=== PATIENT | male | born 1985 | race African-American/Black ===

== ENCOUNTER 2016-08-17 01:39 | Emergency (ER) | payer OTHER ==
[~2016-08-17] VITALS: Ht 172.7 cm; Wt 97.1 kg
[2016-08-17 01:54] VITALS: BP 135/72
[2016-08-17 02:23] LABS: OBC FLU VALID
[2016-08-17] MEDS ORDERED: BENZ100C PO (02:54)
[2016-08-17] MEDS ORDERED: BENZONATATE 100 MG CAPSULE. PO ONE (03:00)
[2016-08-17] MEDS ORDERED: IBUPROFEN 600 MG TABLET. PO ONE (03:00)
[2016-08-17] MEDS ORDERED: DEXAMETHASONE SOD PHOS 4 MG/ML VIAL PO ONE (03:00)
--- NOTE | 2016-08-17 05:05 | ED.ADGEN ---
Past Medical History Past Medical History: Diabetes-Type II Past Surgical History: No Surgical History Additional Information: CIGARS Alcohol Use: Occasionally Adult General Chief Complaint Chief Complaint: SORE THROAT HPI HPI Patient is a 31 year old [man, history of type 2 diabetes mellitus which is controlled with oral euglycemics, hearing loss, for which he has bilateral hearing aids, who presents to the emergency department with complaint of nasal congestion, postnasal drip, cough and sore throat for the past 4 days. Patient states that he has positive sick contacts among family members, denies any fevers or chills, nausea or vomiting, any difficulty swallowing or breathing, any dental pain, any facial swelling. Patient states that he took Tylenol earlier this evening, and was previously seen in an urgent care yesterday, and received both influenza and a strep swab that were negative. No swelling in extremities, no other complaints. Review of Systems Review of Systems Constitutional: Denies fever or chills. [] Eyes: Denies change in visual acuity. [] HENT: Nasal congestion and sore throat Respiratory: Denies cough or shortness of breath. [] Cardiovascular: Denies chest pain or edema. [] GI: Denies abdominal pain, nausea, vomiting, bloody stools or diarrhea. [] : Denies dysuria. [] Musculoskeletal: Denies back pain or joint pain. [] Integument: Denies rash. [] Neurologic: Denies headache, focal weakness or sensory changes. [] Endocrine: Denies polyuria or polydipsia. [] Lymphatic: Denies swollen glands. [] Psychiatric: Denies depression or anxiety. [] Current Medications Current Medications Current Medications Medications (Trade) Dose Ordered Sig/Woo Start Time Stop Time Status Last Admin Dose Admin Benzonatate (Tessalon Perle) 100 mg 1X ONCE 08/17/16 03:00 08/17/16 03:01 DC 08/17/16 03:06 100 MG Dexamethasone Sodium Phosphate (Decadron) 6 mg 1X ONCE 08/17/16 03:00 08/17/16 03:01 DC 08/17/16 03:06 6 MG Ibuprofen (Motrin) 600 mg 1X ONCE 08/17/16 03:00 08/17/16 03:01 DC 08/17/16 03:06 600 MG Allergies Allergies Allergies Coded Allergies Type Severity Reaction Last Updated Verified No Known Drug Allergies 08/17/16 No Physical Exam Physical Exam Constitutional: Well developed, well nourished, no acute distress, non-toxic appearance. [] HENT: Normocephalic, atraumatic, bilateral external ears normal, oropharynx is moist, mildly injected, with post nasal drip noted, no oral exudates, patient with significant bilateral term and swelling with clear rhinorrhea. TMs are clear bilaterally. No sinus tenderness. Eyes: PERRLA, EOMI, conjunctiva normal, no discharge. [] Neck: Normal range of motion, no tenderness, supple, no stridor. [] Cardiovascular:Heart rate regular rhythm, no murmur , S1, S2, no rubs or gallops. [] Lungs & Thorax: Bilateral breath sounds clear to auscultation, no wheezing, rhonchi, rales. No chest wall crepitus. No tenderness. Abdomen: Bowel sounds normal, soft, no tenderness, no masses, no pulsatile masses. [] Skin: Warm, dry, no erythema, no rash. [] Back: No tenderness, no CVA tenderness. [] Extremities: No tenderness, no cyanosis, no clubbing, ROM intact, no edema. [] Neurologic: Alert and oriented X 3, normal motor function, normal sensory function, no focal deficits noted. [] Psychologic: Affect normal, judgement normal, mood normal. [] Current Patient Data Vital Signs Vital Signs Date Time Temp Pulse Resp B/P Pulse Ox O2 Delivery O2 Flow Rate FiO2 08/17/16 01:54 98.1 95 18 98 Room Air 98.1 Lab Values Laboratory Tests Test 08/17/16 02:01 Influenza Type A Antigen Negative (NEGATIVE) Influenza Type B Antigen Negative (NEGATIVE) EKG EKG Not indicated. [] Radiology/Procedures Radiology/Procedures Not indicated. [] Course & Med Decision Making Course & Med Decision Making Pertinent Labs and Imaging studies reviewed. (See chart for details) Patient well-appearing, no evidence of tonsillar swelling or evidence of infection, no exudate as stated, strep and flu swabs are negative in the ED. Evidence of viral upper respiratory infection with potential contribution of seasonal allergies. No sinus tenderness, Patient's primary issue appears to be cough that is worse when he lies down at night. He is using Flonase at home, has begun Claritin again but only took 1 dose earlier today. He was given a single dose of Decadron in the ED to help with inflammation and irritation of the throat, written a prescription for Tessalon Perle, also given a Tessalon Perle in the ED, and ibuprofen. Additionally patient was instructed to stay well -hydrated, given clear and detailed return instructions with which she voiced understanding and agreement. Patient tolerated medications without issue, was discharged home in stable condition with plan as above. Dragon Disclaimer Dragon Disclaimer This electronic medical record was generated, in whole or in part, using a voice recognition dictation system. Departure Impression: Primary Impression: Congestion of nasal sinus Disposition: HOME, SELF-CARE Condition: IMPROVED Scripts Benzonatate (Tessalon Perle)100 Mg [id number] Mg PO TID PRN COUGH #12 CAP Prov:ROLF REDDY DO 08/17/16 ROLF REDDY DO Aug 17, 2016 05:05
[2016-08-17 06:45] LABS: NEGATIVE OBC STREP NEG; POSITIVE OBC STREP POS
== END 2016-08-17 03:11 | disposition home or self-care (01) ==
LOC: ER 01:39
DX: R09.81 Nasal congestion (principal); R09.82 Postnasal drip; J02.9 Acute pharyngitis, unspecified; E11.9 Type 2 diabetes mellitus without complications; F17.210 Nicotine dependence, cigarettes, uncomplicated
CPT/HCPCS: 87070; 87804; 87880; 99284; J1100

== ENCOUNTER 2016-10-05 23:01 | Emergency (ER) | payer OTHER ==
[~2016-10-05 23:01] MED LIST: BENZ100C PO
[2016-10-05 23:12] VITALS: BP 136/84
[2016-10-05] MEDS ORDERED: AMOX1TAB61 PO (23:38)
[2016-10-05] MEDS ORDERED: PRED20TA PO (23:38)
--- NOTE | 2016-10-05 23:39 | PHYS DOC ---
Past Medical History Past Medical History: Diabetes-Type II Past Surgical History: No Surgical History Alcohol Use: Occasionally Drug Use: None Adult General Chief Complaint Chief Complaint: SKIN RASH/ABSCESS [facility] HPI Patient is a 31 year old male presents emergency department stating that he has a rash on his forehead. He states that started today when he was working underneath some heat clamps. He states that this has happened last year when he was out in the sun. He states that he had seen a rn clinical appeals for this in the past in which she was placed on steroids and Benadryl. Patient also states that he has had some sinus pressure on and off for the last month. He states that he has had pressure on the right maxillary area. Patient states he's been taken Benadryl at home as well as Sudafed and Claritin with no relief. Patient denies fever, chills or any nausea vomiting. Review of Systems Review of Systems Constitutional: Denies fever or chills [] Eyes: Denies change in visual acuity, redness, or eye pain [] HENT: nasal congestion denies sore throat [] Respiratory: Denies cough or shortness of breath [] Cardiovascular: No additional information not addressed in HPI [] GI: Denies abdominal pain, nausea, vomiting, bloody stools or diarrhea [] : Denies dysuria or hematuria [] Musculoskeletal: Denies back pain or joint pain [] Integument: rash on his forehead or skin lesions [] Neurologic: Denies headache, focal weakness or sensory changes [] Endocrine: Denies polyuria or polydipsia [] Allergies Allergies Allergies Coded Allergies Type Severity Reaction Last Updated Verified No Known Drug Allergies 08/17/16 No Physical Exam Physical Exam Constitutional: Well developed, well nourished, no acute distress, non-toxic appearance. [] HENT: Normocephalic, atraumatic, bilateral external ears normal, oropharynx moist, no oral exudates, nose normal. Bilateral tympanic membranes appear to be normal. Patient does wear bilateral hearing aids. Patient with right maxillary and frontal sinus tenderness. No anterior cervical adenopathy noted. Eyes: PERRLA, EOMI, conjunctiva normal, no discharge. [] Neck: Normal range of motion, no tenderness, supple, no stridor. [] Cardiovascular:Heart rate regular rhythm, no murmur [] Lungs & Thorax: Bilateral breath sounds clear to auscultation [] Skin: Warm, dry, no erythema, patient with a red papular type rash noted on his forehead. No drainage or discharge noted. Back: No tenderness Extremities: No tenderness, no cyanosis, no clubbing, ROM intact, no edema. [] Neurologic: Alert and oriented X 3, normal motor function, normal sensory function, no focal deficits noted. [] Psychologic: Affect normal, judgement normal, mood normal. [] Current Patient Data Vital Signs Vital Signs Date Time Temp Pulse Resp B/P Pulse Ox O2 Delivery O2 Flow Rate FiO2 10/05/16 23:12 97.9 70 16 97 Room Air 97.9 EKG EKG [] Radiology/Procedures Radiology/Procedures [] Course & Med Decision Making Course & Med Decision Making Pertinent Labs and Imaging studies reviewed. (See chart for details) Patient will be placed on prednisone to help with the rash. He'll also be placed on Augmentin for sinusitis infection. Recommended Sudafed to help with the sinus pressure and Mucinex DM. These medications may be taken as prescribed [id number]. Encourage plenty of fluids such as water Gatorade or propel. Also recommended Benadryl to help with the rash. Patient agrees with discharge instructions treatment regimens and follow-up recommendations. Patient was also instructed that prednisone will also increase his blood sugars. Signs and symptoms to return back to emergency department been provided. [] Dragon Disclaimer Dragon Disclaimer This electronic medical record was generated, in whole or in part, using a voice recognition dictation system. Departure Departure Impression: Primary Impression: Rash Additional Impression: Sinusitis Disposition: 01 HOME, SELF-CARE Condition: STABLE Referrals: LUIS HENDERSON MD (PCP) Patient Instructions: Rash, [id number], Sinusitis, [id number] Additional Instructions: Your being treated for a rash as well as a sinusitis infection. Medication as prescribed. Sudafed instructed by stem frazer [id number]. Mucinex DM instructed by stem frazer [id number]. Benadryl 25 mg every 4-6 hours for irritation to the forehead. This medication will cause drowsiness do not take any be alert and oriented. Keep the area of the rash clean dry and cool. Follow-up to primary care physician in the next week. Return back to emergency prior signs symptoms of become worse. Scripts Prednisone 20 Mg [id number] Mg PO DAILY #14 TAB Prov:JAMAR MASSEY APRN 10/05/16 Amoxicillin/Potassium Clav (Augmentin 875-125 Tablet)1 Each Tablet1 Tab PO BID # 20 TAB Prov:JAMAR MASSEY APRN 10/05/16 Problem Qualifiers JAMAR MASSEY APRN Oct 05, 2016 23:39
== END 2016-10-05 23:46 | disposition home or self-care (01) ==
LOC: ER 23:01
DX: R21 Rash and other nonspecific skin eruption (principal); J32.9 Chronic sinusitis, unspecified; E11.9 Type 2 diabetes mellitus without complications
CPT/HCPCS: 99283

== ENCOUNTER 2017-05-11 14:28 | Emergency (ER) | payer OTHER ==
[~2017-05-11] VITALS: Ht 172.7 cm; Wt 96.6 kg
[~2017-05-11 14:28] MED LIST changes: +AMOX1TAB61 PO; +PRED20TA PO
[2017-05-11 15:00] LABS: BILIRUBIN,URINE NEGATIVE (NEG); GLUCOSE,URINE >=1000 mg/dL (NEG); NITRITE,URINE NEGATIVE (NEG); PH,URINE 7.5; PROTEIN,URINE NEGATIVE (NEG-TRACE); UROBILINOGEN,URINE 0.2 mg/dL (0.2 mg/dL)
[2017-05-11 15:11] LABS: BACTERIA,URINE 0 /HPF (0-FEW); RBC,URINE 0 /HPF (0-2); WBC,URINE 0 /HPF (0-4)
[2017-05-11] MEDS ORDERED: IV NORMAL SALINE 1000ML BAG 1,000 ML IV ONE (15:15)
[2017-05-11 15:45] LABS: BASO # 0.1 x10^3/uL (0.0-0.2); BASO % 1 % (0-3); EOS % 4 % (0-3); HEMATOCRIT 45.6 % (39.0-53.0); HEMOGLOBIN 15.4 g/dL (13.0-17.5); LYMPH # 3.1 x10^3/uL (1.0-4.8); LYMPH % 25 % (24-48); MEAN CORPUSCULAR HEMOGLOBIN 29 pg (25-35); MEAN CORPUSCULAR HGB CONC 34 g/dL (31-37); MEAN CORPUSCULAR VOLUME 85 fL (79-100); MONO % 6 % (0-9); NEUT % 65 % (31-73); PLATELET COUNT 199 x10^3/uL (140-400); RED BLOOD COUNT 5.36 x10^6/uL (4.30-5.70); RED CELL DISTRIBUTION WIDTH 13.5 % (11.5-14.5); WHITE BLOOD COUNT 12.6 x10^3/uL (4.0-11.0)
[2017-05-11 15:56] LABS: ANION GAP 6 (6-14); BLOOD UREA NITROGEN 14 mg/dL (8-26); CALCIUM 9.5 mg/dL (8.5-10.1); CARBON DIOXIDE 31 mmol/L (21-32); CHLORIDE 99 mmol/L (98-107); CREATININE 1.1 mg/dL (0.7-1.3); GFR 92.7; GLUCOSE 407 mg/dL (70-99); POTASSIUM 4.4 mmol/L (3.5-5.1); SODIUM 136 mmol/L (136-145)
[2017-05-11 16:03] LABS: ALBUMIN 3.4 g/dL (3.4-5.0); ALK PHOS 122 U/L (46-116); ALT (SGPT) 29 U/L (16-63); AST (SGOT) 15 U/L (15-37); DIRECT BILIRUBIN < 0.1 mg/dL (0.0-0.2); TOTAL BILIRUBIN 0.2 mg/dL (0.2-1.0); TOTAL PROTEIN 7.4 g/dL (6.4-8.2)
--- NOTE | 2017-05-11 16:21 | PHYS DOC ---
Past Medical History Past Medical History: Diabetes-Type II Past Surgical History: No Surgical History Alcohol Use: Occasionally Drug Use: None Adult General Chief Complaint Chief Complaint: HYPERGLYCEMIA HPI HPI 32-year-old male presenting the emergency department today with high blood sugars. He also complains of polyuria. He denies chest pain or shortness of breath. He is noted to have high blood sugars at home. He is type 2 diabetes currently on 1000 mg of metformin daily. He denies taking insulin. Otherwise he reports feeling "fine". He denies fevers or chills or cough. Onset today. Location generalized/blood. Duration intermittent. No alleviating or exacerbating factors. Review of systems is negative for fevers chills cough abdominal pain nausea vomiting diarrhea or dysuria. He denies chest pain or shortness of breath. All other review of systems is negative unless otherwise noted in history of present illness. ED course: 32-year-old male presenting the emergency department with high blood sugars. Vital signs unremarkable. Blood work obtained which showed no evidence of acidosis. I discussed the case with Dr. valdivia who is geothermal operations engineer for Dr. castro. Patient will likely need to be initiated on insulin which she'll have a primary care provider you. Dr. copeland states that they will be able to get the patient and clinic within the next day or 2. The patient was then discharged home in stable condition to follow up with their primary care physician over the next 2- 3 days. They were to return if their symptoms worsened or if they were concerned for any reason. [id number] discharge instructions and return precautions were given. Patient's questions were answered to their satisfaction. Patient is comfortable plan. Review of Systems Review of Systems SEE ABOVE. Current Medications Current Medications Current Medications Medications (Trade) Dose Ordered Sig/[facility] Start Time Stop Time Status Last Admin Dose Admin Sodium Chloride 1,000 ml @ 1,000 mls/hr 1X ONCE 05/11/17 15:15 05/11/17 16:14 DC 05/11/17 15:23 1,000 MLS/HR Allergies Allergies Allergies Coded Allergies Type Severity Reaction Last Updated Verified No Known Drug Allergies 08/17/16 No Physical Exam Physical Exam SEE ABOVE Constitutional: Well developed, well nourished, no acute distress, non-toxic appearance. HENT: Normocephalic, atraumatic, bilateral external ears normal, oropharynx moist, no oral exudates, nose normal. [] Eyes: PERRLA, EOMI, conjunctiva normal, no discharge. [] Neck: Normal range of motion, no tenderness, supple, no stridor. Cardiovascular:Heart rate regular rhythm, no murmur [] Lungs & Thorax: Bilateral breath sounds clear to auscultation [] Abdomen: Bowel sounds normal, soft, no tenderness, no masses, no pulsatile masses. Skin: Warm, dry, no erythema, no rash. [] Back: No tenderness, no CVA tenderness. Extremities: No tenderness, no cyanosis, no clubbing, ROM intact, no edema. [] Neurologic: Alert and oriented X 3, normal motor function, normal sensory function, no focal deficits noted. [] Psychologic: Affect normal, judgement normal, mood normal. [] Current Patient Data Vital Signs Vital Signs Date Time Temp Pulse Resp B/P (MAP) Pulse Ox O2 Delivery O2 Flow Rate FiO2 05/11/17 16:30 76 119/76 (90) 97 Room Air 05/11/17 15:53 17 05/11/17 14:40 98.3 98.3 Lab Values Laboratory Tests Test 05/11/17 14:40 05/11/17 14:52 05/11/17 15:20 Glucose (Fingerstick) 430 mg/dL (70-99) H Urine Collection Type Unknown Urine Color Yellow Urine Clarity Clear Urine pH 7.5 Urine Specific [place] >=1.030 Urine Protein Negative mg/dL (NEG-TRACE) Urine Glucose (UA) >=1000 mg/dL (NEG) Urine Ketones (Stick) Negative mg/dL (NEG) Urine Blood Negative (NEG) Urine Nitrite Negative (NEG) Urine Bilirubin Negative (NEG) Urine Urobilinogen Dipstick 0.2 mg/dL (0.2 mg/dL) Urine Leukocyte Esterase Negative (NEG) Urine RBC 0 /HPF (0-2) Urine WBC 0 /HPF (0-4) Urine Bacteria 0 /HPF (0-FEW) White Blood Count 12.6 x10^3/uL (4.0-11.0) H Red Blood Count 5.36 x10^6/uL (4.30-5.70) Hemoglobin 15.4 g/dL (13.0-17.5) Hematocrit 45.6 % (39.0-53.0) Mean Corpuscular Volume 85 fL (79-100) Mean Corpuscular Hemoglobin 29 pg (25-35) Mean Corpuscular Hemoglobin Concent 34 g/dL (31-37) Red Cell Distribution Width 13.5 % (11.5-14.5) Platelet Count 199 x10^3/uL (140-400) Neutrophils (%) (Auto) 65 % (31-73) Lymphocytes (%) (Auto) 25 % (24-48) Monocytes (%) (Auto) 6 % (0-9) Eosinophils (%) (Auto) 4 % (0-3) H Basophils (%) (Auto) 1 % (0-3) Neutrophils # (Auto) 8.1 x10^3uL (1.8-7.7) H Lymphocytes # (Auto) 3.1 x10^3/uL (1.0-4.8) Monocytes # (Auto) 0.7 x10^3/uL (0.0-1.1) Eosinophils # (Auto) 0.5 x10^3/uL (0.0-0.7) Basophils # (Auto) 0.1 x10^3/uL (0.0-0.2) Sodium Level 136 mmol/L (136-145) Potassium Level 4.4 mmol/L (3.5-5.1) Chloride Level 99 mmol/L (98-107) Carbon Dioxide Level 31 mmol/L (21-32) Anion Gap 6 (6-14) Blood Urea Nitrogen 14 mg/dL (8-26) Creatinine 1.1 mg/dL (0.7-1.3) Estimated GFR (Cockcroft-Gault) 92.7 Glucose Level 407 mg/dL (70-99) H Calcium Level 9.5 mg/dL (8.5-10.1) Total Bilirubin 0.2 mg/dL (0.2-1.0) Direct Bilirubin < 0.1 mg/dL (0.0-0.2) Aspartate Amino Transferase (AST) 15 U/L (15-37) Alanine Aminotransferase (ALT) 29 U/L (16-63) Alkaline Phosphatase 122 U/L (46-116) H Total Protein 7.4 g/dL (6.4-8.2) Albumin 3.4 g/dL (3.4-5.0) Lipase 374 U/L (73-393) Laboratory Tests 05/11/17 15:20 Laboratory Tests 05/11/17 15:20 EKG EKG [] Radiology/Procedures Radiology/Procedures [] Course & Med Decision Making Course & Med Decision Making Pertinent Labs and Imaging studies reviewed. (See chart for details) [] Dragon Disclaimer Dragon Disclaimer This electronic medical record was generated, in whole or in part, using a voice recognition dictation system. Departure Departure Impression: Primary Impression: Hyperglycemia Disposition: HOME, SELF-CARE Condition: STABLE Referrals: LUIS CASTRO MD (PCP) Patient Instructions: Hyperglycemia Additional Instructions: Thank you for allowing us to participate in your care today. Followup with your primary care physician in 3 days if your symptoms do not improve. Call your Primary Doctor tomorrow and inform them of your visit today. If you do not have a primary care provider you can ask for a list of our primary care providers. Return to the emergency department you have any new or concerning findings. This should be evaluated by the primary care physician and any necessary consulting services for continued management within a few days after discharge. Return to emergency room if you have any new or concerning symptoms including but not limited to fever, chills, nausea, vomiting, intractable pain, any new rashes, chest pain, shortness of air, uncontrolled bleeding, difficulty breathing, and/or vision loss. CAMILA LYN MD May 11, 2017 16:21
[2017-05-11 16:30] VITALS: BP 119/76
== END 2017-05-11 16:51 | disposition home or self-care (01) ==
LOC: ER 14:28
DX: E11.65 Type 2 diabetes mellitus with hyperglycemia (principal)
CPT/HCPCS: 36415; 80048; 80076; 81001; 82962; 83690; 85025; 96360; 99284; J7030

== ENCOUNTER 2018-04-03 21:57 | Emergency (ER) | payer OTHER ==
[~2018-04-03] VITALS: Ht 172.7 cm; Wt 96.6 kg
[2018-04-03 22:43] LABS: BILIRUBIN,URINE NEGATIVE (NEG); CLARITY,URINE CLEAR; NITRITE,URINE NEGATIVE (NEG); PROTEIN,URINE NEGATIVE (NEG-TRACE); UROBILINOGEN,URINE 0.2 mg/dL (0.2 mg/dL)
[2018-04-03 22:49] LABS: COLOR,URINE STRAW
[2018-04-03 22:50] LABS: BACTERIA,URINE 0 /HPF (0-FEW); RBC,URINE OCC /HPF (0-2); SQUAMOUS EPITHELIAL CELL,UR OCC /LPF; WBC,URINE 0 /HPF (0-4)
[2018-04-03 23:22] VITALS: BP 121/74
--- NOTE | 2018-04-03 23:22 | RAD ---
CT scan of the abdomen and pelvis without contrast 04/03/2018 CLINICAL HISTORY: Left lower quadrant abdominal pain. TECHNIQUE: Unenhanced, contiguous, 2 mm axial sections were obtained through the abdomen and pelvis. One or more of the following individualized dose reduction techniques were utilized for this study: 1. Automated exposure control. 2. Adjustment of the mA and/or kV according to patient size. 3. Use of iterative reconstruction technique. FINDINGS: No previous imaging studies are available for comparison. The absence of oral and intravenous contrast limits the study for the detection of solid organ and bowel pathology. Images through the lung bases are within normal limits. The liver, spleen, pancreas, and adrenal glands are within normal limits. No renal or ureteral calculus is seen. There is no evidence of obstruction of either collecting system. The abdominal aorta tapers normally. The gallbladder is contracted. No free fluid or free air is seen within the abdomen. There is no evidence of bowel obstruction. The appendix is well-visualized and is within normal limits. Images through the pelvis demonstrate the urinary bladder distended with urine. Oval-shaped masses are seen along the pelvic sidewalls, left greater than right suspicious for lymphadenopathy. The left pelvic mass measures 6.3 cm in greatest diameter. The right pelvic mass measures 3 cm in greatest diameter. No inguinal lymphadenopathy is seen. No retroperitoneal lymphadenopathy is noted. No free fluid is seen within the pelvis. Calcifications are seen within the pelvis consistent with phleboliths. Minimal S-shaped curvature of the thoracolumbar spine is seen. Degenerative changes are seen involving lower lumbar spine. IMPRESSION: 1. No renal or ureteral calculus is seen. There is no evidence of obstruction of either collecting system. 2. Masses are seen within the pelvis which most likely represent pelvic lymphadenopathy, left greater than right as outlined above. Electronically signed by: Colby Newell MD (04/03/2018 11:19 PM) [facility]
[2018-04-03 23:25] LABS: BASO # 0.1 x10^3/uL (0.0-0.2); BASO % 1 % (0-3); EOS # 0.5 x10^3/uL (0.0-0.7); EOS % 4 % (0-3); HEMATOCRIT 42.7 % (39.0-53.0); LYMPH # 3.5 x10^3/uL (1.0-4.8); LYMPH % 29 % (24-48); MEAN CORPUSCULAR HEMOGLOBIN 30 pg (25-35); MEAN CORPUSCULAR HGB CONC 35 g/dL (31-37); MEAN CORPUSCULAR VOLUME 86 fL (79-100); MONO # 0.8 x10^3/uL (0.0-1.1); MONO % 7 % (0-9); NEUT # 7.2 x10^3uL (1.8-7.7); NEUT % 59 % (31-73); PLATELET COUNT 221 x10^3/uL (140-400); RED BLOOD COUNT 4.98 x10^6/uL (4.30-5.70); RED CELL DISTRIBUTION WIDTH 13.3 % (11.5-14.5); WHITE BLOOD COUNT 12.1 x10^3/uL (4.0-11.0)
[2018-04-03 23:35] LABS: CALCIUM 9.3 mg/dL (8.5-10.1); CREATININE 0.8 mg/dL (0.7-1.3); GFR 133.1; POTASSIUM 3.9 mmol/L (3.5-5.1)
[2018-04-03 23:41] LABS: ALBUMIN 3.5 g/dL (3.4-5.0); ALBUMIN/GLOBULIN RATIO 0.9 (1.0-1.7); TOTAL BILIRUBIN 0.2 mg/dL (0.2-1.0); TOTAL PROTEIN 7.4 g/dL (6.4-8.2)
--- NOTE | 2018-04-04 04:46 | PHYS DOC ---
Past Medical History Past Medical History: Diabetes-Type II Past Surgical History: No Surgical History Alcohol Use: Occasionally Drug Use: None Adult General Chief Complaint Chief Complaint: FLANK PAIN HPI HPI Patient is a 33 year old -[place] male who presents with complaints of intermittent left flank pain rated as mild to moderate the past week. Patient also reports increased urinary frequency with pain over the left pelvic region. No nausea vomiting or sweats. No constipation or diarrhea. No prior abdominal surgeries. No history of kidney stones. No other acute symptoms or complaints[] Review of Systems Review of Systems ROS PER HPI All other systems were reviewed and found to be within normal limits, except as documented in this note. Allergies Allergies Allergies Coded Allergies Type Severity Reaction Last Updated Verified No Known Drug Allergies 08/17/16 No Physical Exam Physical Exam Constitutional: Well developed, well nourished, no acute distress, non-toxic appearance. [] HENT: Normocephalic, atraumatic, bilateral external ears normal, oropharynx moist, no oral exudates, nose normal. [] Eyes: PERRLA, EOMI, conjunctiva normal, no discharge. [] Neck: Normal range of motion, no tenderness, supple, no stridor. [] Cardiovascular:Heart rate regular rhythm, no murmur [] Lungs & Thorax: Bilateral breath sounds clear to auscultation [] Abdomen: Bowel sounds normal, soft, no tenderness,. [] Skin: Warm, dry, no erythema, no rash. [] Back: No tenderness, no CVA tenderness. [] Extremities: No tenderness, no cyanosis, no clubbing, ROM intact, no edema. [] Neurologic: Alert and oriented X 3, normal motor function, normal sensory function, no focal deficits noted. [] Psychologic: Affect normal, judgement normal, mood normal. [] Current Patient Data Vital Signs Vital Signs Date Time Temp Pulse Resp B/P (MAP) Pulse Ox O2 Delivery O2 Flow Rate FiO2 04/03/18 23:22 98.9 98 20 121/74 (90) 98 Room Air 98.9 Lab Values Laboratory Tests Test 04/03/18 22:02 04/03/18 23:15 Urine Collection Type Void Urine Color Straw Urine Clarity Clear Urine pH 6.0 Urine Specific [place] 1.010 Urine Protein Negative mg/dL (NEG-TRACE) Urine Glucose (UA) Negative mg/dL (NEG) Urine Ketones (Stick) Negative mg/dL (NEG) Urine Blood Negative (NEG) Urine Nitrite Negative (NEG) Urine Bilirubin Negative (NEG) Urine Urobilinogen Dipstick 0.2 mg/dL (0.2 mg/dL) Urine Leukocyte Esterase Negative (NEG) Urine RBC Occ /HPF (0-2) Urine WBC 0 /HPF (0-4) Urine Squamous Epithelial Cells Occ /LPF Urine Bacteria 0 /HPF (0-FEW) Urine Mucus Slight /LPF White Blood Count 12.1 x10^3/uL (4.0-11.0) H Red Blood Count 4.98 x10^6/uL (4.30-5.70) Hemoglobin 15.0 g/dL (13.0-17.5) Hematocrit 42.7 % (39.0-53.0) Mean Corpuscular Volume 86 fL (79-100) Mean Corpuscular Hemoglobin 30 pg (25-35) Mean Corpuscular Hemoglobin Concent 35 g/dL (31-37) Red Cell Distribution Width 13.3 % (11.5-14.5) Platelet Count 221 x10^3/uL (140-400) Neutrophils (%) (Auto) 59 % (31-73) Lymphocytes (%) (Auto) 29 % (24-48) Monocytes (%) (Auto) 7 % (0-9) Eosinophils (%) (Auto) 4 % (0-3) H Basophils (%) (Auto) 1 % (0-3) Neutrophils # (Auto) 7.2 x10^3uL (1.8-7.7) Lymphocytes # (Auto) 3.5 x10^3/uL (1.0-4.8) Monocytes # (Auto) 0.8 x10^3/uL (0.0-1.1) Eosinophils # (Auto) 0.5 x10^3/uL (0.0-0.7) Basophils # (Auto) 0.1 x10^3/uL (0.0-0.2) Sodium Level 137 mmol/L (136-145) Potassium Level 3.9 mmol/L (3.5-5.1) Chloride Level 103 mmol/L (98-107) Carbon Dioxide Level 27 mmol/L (21-32) Anion Gap 7 (6-14) Blood Urea Nitrogen 12 mg/dL (8-26) Creatinine 0.8 mg/dL (0.7-1.3) Estimated GFR (Cockcroft-Gault) 133.1 BUN/Creatinine Ratio 15 (6-20) Glucose Level 165 mg/dL (70-99) H Calcium Level 9.3 mg/dL (8.5-10.1) Total Bilirubin 0.2 mg/dL (0.2-1.0) Aspartate Amino Transferase (AST) 15 U/L (15-37) Alanine Aminotransferase (ALT) 25 U/L (16-63) Alkaline Phosphatase 93 U/L (46-116) Total Protein 7.4 g/dL (6.4-8.2) Albumin 3.5 g/dL (3.4-5.0) Albumin/Globulin Ratio 0.9 (1.0-1.7) L Laboratory Tests 04/03/18 23:15 Laboratory Tests 04/03/18 23:15 EKG EKG [] Radiology/Procedures Radiology/Procedures [CT abdomen pelvis: No evidence of kidney stones or ureteral obstruction. Nonspecifi, lymphadenopathy noted] Course & Med Decision Making Course & Med Decision Making Pertinent Labs and Imaging studies reviewed. (See chart for details) [Lab, and imaging studies reassuring. Recommend supportive care with PCP follow- up. Return precautions reviewed.] Dragon Disclaimer Dragon Disclaimer This electronic medical record was generated, in whole or in part, using a voice recognition dictation system. Departure Departure Impression: Primary Impression: Acute left flank pain Additional Impression: Urinary frequency Disposition: 01 HOME, SELF-CARE Condition: GOOD Patient Instructions: Flank Pain, [id number] Additional Instructions: You were evaluated in the emergency department for left flank pain, and increased urinary frequency. Lab and imaging were performed and are nondiagnostic. CT scan did show an inflamed pelvic lymph nodes. The significance of this finding is unknown. Please take ibuprofen or Tylenol for your back pain and follow-up with your local primary care physician for reevaluation and review CT results. In the meantime, if you develop new or worsening symptoms return to the ED.. Problem Qualifiers CHARLIE SINGER DO Apr 04, 2018 04:46
== END 2018-04-04 00:45 | disposition home or self-care (01) ==
LOC: ER 21:57
DX: R10.9 Unspecified abdominal pain (principal); R35.0 Frequency of micturition; R10.2 Pelvic and perineal pain; E11.9 Type 2 diabetes mellitus without complications
CPT/HCPCS: 36415; 74176; 80053; 81001; 85025; 99285-25

== ENCOUNTER 2019-04-19 00:16 | Emergency (ER) | payer OTHER ==
[~2019-04-19] VITALS: Ht 172.7 cm; Wt 96.6 kg
[2019-04-19] MEDS ORDERED: IV NORMAL SALINE 1000ML BAG 1,000 ML IV SCH (01:00)
[2019-04-19] MEDS ORDERED: ONDANSETRON PF 4 MG/2 ML VIAL. IV ONE (01:15)
[2019-04-19] MEDS ORDERED: LOPERAMIDE 2 MG CAPSULE PO ONE (01:15)
[2019-04-19 01:27] LABS: BASO % 0 % (0-3); EOS # 0.3 x10^3/uL (0.0-0.7); EOS % 5 % (0-3); HEMATOCRIT 37.9 % (39.0-53.0); HEMOGLOBIN 12.9 g/dL (13.0-17.5); LYMPH # 0.3 x10^3/uL (1.0-4.8); LYMPH % 6 % (24-48); MEAN CORPUSCULAR HEMOGLOBIN 28 pg (25-35); MEAN CORPUSCULAR HGB CONC 34 g/dL (31-37); MEAN CORPUSCULAR VOLUME 82 fL (79-100); MONO # 0.6 x10^3/uL (0.0-1.1); MONO % 11 % (0-9); NEUT # 4.3 x10^3/uL (1.8-7.7); NEUT % 78 % (31-73); PLATELET COUNT 207 x10^3/uL (140-400); RED BLOOD COUNT 4.62 x10^6/uL (4.30-5.70); RED CELL DISTRIBUTION WIDTH 14.4 % (11.5-14.5); WHITE BLOOD COUNT 5.5 x10^3/uL (4.0-11.0)
[2019-04-19 01:42] LABS: CALCIUM 9.1 mg/dL (8.5-10.1); CREATININE 0.8 mg/dL (0.7-1.3); GFR 132.4
[2019-04-19 01:47] LABS: ALBUMIN 3.4 g/dL (3.4-5.0); TOTAL BILIRUBIN 0.1 mg/dL (0.2-1.0); TOTAL PROTEIN 6.9 g/dL (6.4-8.2)
[2019-04-19 02:04] LABS: % BANDS 2 % (0-9); % EOS 6 % (0-5); % LYMPHS 7 % (24-48); % MONOS 14 % (0-10); % SEGS 71 % (35-66); PLT ESTIMATE ADEQUATE (ADEQUATE); TOXIC GRANULATION SLIGHT
[2019-04-19 02:15] VITALS: BP 123/83
[2019-04-19 02:16] LABS: BILIRUBIN,URINE NEGATIVE (NEG); CLARITY,URINE CLEAR; COLOR,URINE YELLOW; NITRITE,URINE NEGATIVE (NEG); PROTEIN,URINE NEGATIVE (NEG-TRACE); UROBILINOGEN,URINE 0.2 mg/dL (0.2 mg/dL)
[2019-04-19 02:25] LABS: BACTERIA,URINE 0 /HPF (0-FEW); RBC,URINE 0 /HPF (0-2); SQUAMOUS EPITHELIAL CELL,UR OCC /LPF; WBC,URINE OCC /HPF (0-4)
--- NOTE | 2019-04-19 02:35 | PHYS DOC ---
Past Medical History Past Medical History: Cancer, Diabetes-Type II Additional Past Medical Histor: PROSTATE CA Past Surgical History: No Surgical History Alcohol Use: Occasionally Drug Use: None Adult General Chief Complaint Chief Complaint: DIARRHEA HPI HPI Patient is a 34 year old male who presents with complaining of diarrhea. Patient states he has had history of prostate cancer and currently taking radiation therapy 5 times a week and his last therapy was 4 days ago and since then he has had episodes of diarrhea and thinks he is dehydrated. Patient states he had 5 or 6 episodes of nonbloody diarrhea today with generalized weakness and dizziness and nausea. Patient states he didn't check his blood sugar but thinks his blood sugar is high and thinks he needs IV fluid. Review of Systems Review of Systems Constitutional: Denies fever or chills [] Eyes: Denies change in visual acuity, redness, or eye pain [] HENT: Denies nasal congestion or sore throat [] Respiratory: Denies cough or shortness of breath [] Cardiovascular: No additional information not addressed in HPI [] GI: Denies abdominal pain, vomiting, reports nausea and diarrhea [] : Denies dysuria or hematuria [] Musculoskeletal: Denies back pain or joint pain [] Integument: Denies rash or skin lesions [] Neurologic: Denies headache, focal weakness or sensory changes [] Endocrine: Denies polyuria or polydipsia [] All other systems were reviewed and found to be within normal limits, except as documented in this note. Current Medications Current Medications Current Medications Medications (Trade) Dose Ordered Sig/Woo Start Time Stop Time Status Last Admin Dose Admin Loperamide HCl (Imodium) 4 mg 1X ONCE 04/19/19 01:15 04/19/19 01:16 DC 04/19/19 01:16 4 MG Ondansetron HCl (Zofran) 4 mg 1X ONCE 04/19/19 01:15 04/19/19 01:16 DC 04/19/19 01:16 4 MG Sodium Chloride 1,000 ml @ 1,000 mls/hr Q1H 04/19/19 01:00 04/19/19 01:59 DC 04/19/19 01:16 1,000 MLS/HR Allergies Allergies Allergies Coded Allergies Type Severity Reaction Last Updated Verified No Known Drug Allergies 08/17/16 No Physical Exam Physical Exam Constitutional: Well developed, well nourished, mild distress, non-toxic appearance. [] HENT: Normocephalic, atraumatic. Eyes: PERRLA, EOMI, conjunctiva normal, no discharge. [] Neck: Normal range of motion, no tenderness, supple, no stridor. [] Cardiovascular:Heart rate regular rhythm, no murmur [] Lungs & Thorax: Bilateral breath sounds clear to auscultation [] Abdomen: Bowel sounds normal, soft, no tenderness, no masses, no pulsatile masses. [] Skin: Warm, dry, no erythema, no rash. [] Back: No tenderness, no CVA tenderness. [] Extremities: No tenderness, no cyanosis, no clubbing, ROM intact, no edema. [] Neurologic: Alert and oriented X 3, no focal deficits noted. [] Psychologic: Affect normal, judgement normal, mood normal. [] Current Patient Data Vital Signs Vital Signs Date Time Temp Pulse Resp B/P (MAP) Pulse Ox O2 Delivery O2 Flow Rate FiO2 04/19/19 00:56 97.7 85 16 134/89 (104) 98 Room Air 97.7 Lab Values Laboratory Tests Test 04/19/19 01:10 04/19/19 02:10 White Blood Count 5.5 x10^3/uL (4.0-11.0) Red Blood Count 4.62 x10^6/uL (4.30-5.70) Hemoglobin 12.9 g/dL (13.0-17.5) L Hematocrit 37.9 % (39.0-53.0) L Mean Corpuscular Volume 82 fL (79-100) Mean Corpuscular Hemoglobin 28 pg (25-35) Mean Corpuscular Hemoglobin Concent 34 g/dL (31-37) Red Cell Distribution Width 14.4 % (11.5-14.5) Platelet Count 207 x10^3/uL (140-400) Neutrophils (%) (Auto) 78 % (31-73) H Lymphocytes (%) (Auto) 6 % (24-48) L Monocytes (%) (Auto) 11 % (0-9) H Eosinophils (%) (Auto) 5 % (0-3) H Basophils (%) (Auto) 0 % (0-3) Neutrophils # (Auto) 4.3 x10^3/uL (1.8-7.7) Lymphocytes # (Auto) 0.3 x10^3/uL (1.0-4.8) L Monocytes # (Auto) 0.6 x10^3/uL (0.0-1.1) Eosinophils # (Auto) 0.3 x10^3/uL (0.0-0.7) Basophils # (Auto) 0.0 x10^3/uL (0.0-0.2) Segmented Neutrophils % 71 % (35-66) H Band Neutrophils % 2 % (0-9) Lymphocytes % 7 % (24-48) L Monocytes % 14 % (0-10) H Eosinophils % 6 % (0-5) H Toxic Granulation Slight Platelet Estimate Adequate (ADEQUATE) Sodium Level 137 mmol/L (136-145) Potassium Level 4.0 mmol/L (3.5-5.1) Chloride Level 102 mmol/L (98-107) Carbon Dioxide Level 25 mmol/L (21-32) Anion Gap 10 (6-14) Blood Urea Nitrogen 8 mg/dL (8-26) Creatinine 0.8 mg/dL (0.7-1.3) Estimated GFR (Cockcroft-Gault) 132.4 BUN/Creatinine Ratio 10 (6-20) Glucose Level 237 mg/dL (70-99) H Calcium Level 9.1 mg/dL (8.5-10.1) Total Bilirubin 0.1 mg/dL (0.2-1.0) L Aspartate Amino Transferase (AST) 8 U/L (15-37) L Alanine Aminotransferase (ALT) 22 U/L (16-63) Alkaline Phosphatase 98 U/L (46-116) Total Protein 6.9 g/dL (6.4-8.2) Albumin 3.4 g/dL (3.4-5.0) Albumin/Globulin Ratio 1.0 (1.0-1.7) Lipase 223 U/L (73-393) Urine Collection Type Unknown Urine Color Yellow Urine Clarity Clear Urine pH 5.0 Urine Specific [place] 1.015 Urine Protein Negative mg/dL (NEG-TRACE) Urine Glucose (UA) 500 mg/dL (NEG) Urine Ketones (Stick) Negative mg/dL (NEG) Urine Blood Negative (NEG) Urine Nitrite Negative (NEG) Urine Bilirubin Negative (NEG) Urine Urobilinogen Dipstick 0.2 mg/dL (0.2 mg/dL) Urine Leukocyte Esterase Negative (NEG) Urine RBC 0 /HPF (0-2) Urine WBC Occ /HPF (0-4) Urine Squamous Epithelial Cells Occ /LPF Urine Bacteria 0 /HPF (0-FEW) Urine Mucus Slight /LPF Laboratory Tests 04/19/19 01:10 Laboratory Tests 04/19/19 01:10 EKG EKG [] Radiology/Procedures Radiology/Procedures [] Course & Med Decision Making Course & Med Decision Making Pertinent Labs reviewed. (See chart for details) Evaluation of patient in ER showed 34-year-old male patient under radiation therapy for prostate cancer complaining of diarrhea and elevation of blood sugar and dehydration. Patient had unremarkable labs except for blood sugar of 237 and treated with IV fluid, Zofran and Imodium with improvement of his condition. Patient was advised to follow-up with his oncologist. Dragon Disclaimer Dragon Disclaimer This electronic medical record was generated, in whole or in part, using a voice recognition dictation system. Departure Departure Impression: Primary Impression: Diarrhea Additional Impressions: History of prostate cancer Uncontrolled diabetes mellitus Disposition: HOME, SELF-CARE (at 0233) Condition: IMPROVED Referrals: PAUL BARRIOS (PCP) Patient Instructions: Diarrhea, Diet for Diarrhea, Adult, Hyperglycemia Additional Instructions: Drink plenty of liquids Follow-up with your primary care physician in 3-5 days Return to ER if not getting better Problem Qualifiers Primary Impression: Diarrhea Diarrhea type: unspecified type Qualified Codes: R19.7 - Diarrhea, unspecified Additional Impressions: Uncontrolled diabetes mellitus Diabetes mellitus type: other specified (including ALBERT) Glycemic state: with hyperglycemia Qualified Codes: E13.65 - Other specified diabetes mellitus with hyperglycemia SHANT PORTER MD Apr 19, 2019 02:35
== END 2019-04-19 02:45 | disposition home or self-care (01) ==
LOC: ER 00:16
DX: E11.65 Type 2 diabetes mellitus with hyperglycemia (principal); E86.0 Dehydration; R19.7 Diarrhea, unspecified; R53.1 Weakness; Z85.46 Personal history of malignant neoplasm of prostate
CPT/HCPCS: 36415; 80053; 81001; 83690; 85007; 85025; 96361; 96374; 99284; J2405; J7030; 99285

== ENCOUNTER 2019-06-27 18:33 | Emergency (ER) | payer OTHER ==
[~2019-06-27] VITALS: Ht 172.7 cm; Wt 104.3 kg
[2019-06-27] MEDS ORDERED: SULF1TAB24 PO (18:53)
--- NOTE | 2019-06-27 18:53 | PHYS DOC ---
Past Medical History Past Medical History: Cancer, Diabetes-Type II Additional Past Medical Histor: PROSTATE CA Past Surgical History: No Surgical History Alcohol Use: Occasionally Drug Use: None Adult General Chief Complaint Chief Complaint: SKIN RASH/ABSCESS HPI HPI 34 yo male presents to the emergency department with complaints of rash around port site. Patient has underlying history of prostate cancer, diabetes. He had his port removed on June 21. He noticed itching around the site, he also noticed bumps. He denies any drainage. Patient denies fever, nausea, vomiting, chest pain or SOB. All other ROS negative unless documented in HPI Review of Systems Review of Systems See Above Allergies Allergies Allergies Coded Allergies Type Severity Reaction Last Updated Verified No Known Drug Allergies 08/17/16 No Physical Exam Physical Exam See Above Constitutional: Well developed, well nourished, no acute distress, non-toxic appearance. [] Cardiovascular:Heart rate regular rhythm, no murmur [] Lungs & Thorax: Bilateral breath sounds clear to auscultation [] Abdomen: Bowel sounds normal, soft, no tenderness, no masses, no pulsatile masses. [] Skin: Warm, dry, no erythema, small raised rash - non vesicular appreciated around port site, no drainage appreciated Extremities: No tenderness, no edema. [] Neurologic: Alert and oriented X 3, no focal deficits noted. [] Psychologic: Affect normal, judgement normal, mood normal. [] Current Patient Data Vital Signs Vital Signs Date Time Temp Pulse Resp B/P (MAP) Pulse Ox O2 Delivery O2 Flow Rate FiO2 06/27/19 18:40 98.1 73 20 134/75 (94) 95 Room Air 98.1 Lab Values Laboratory Tests Test 06/27/19 18:50 White Blood Count 5.5 x10^3/uL (4.0-11.0) Red Blood Count 4.41 x10^6/uL (4.30-5.70) Hemoglobin 12.8 g/dL (13.0-17.5) L Hematocrit 36.9 % (39.0-53.0) L Mean Corpuscular Volume 84 fL (79-100) Mean Corpuscular Hemoglobin 29 pg (25-35) Mean Corpuscular Hemoglobin Concent 35 g/dL (31-37) Red Cell Distribution Width 13.9 % (11.5-14.5) Platelet Count 301 x10^3/uL (140-400) Neutrophils (%) (Auto) 75 % (31-73) H Lymphocytes (%) (Auto) 14 % (24-48) L Monocytes (%) (Auto) 8 % (0-9) Eosinophils (%) (Auto) 2 % (0-3) Basophils (%) (Auto) 1 % (0-3) Neutrophils # (Auto) 4.1 x10^3/uL (1.8-7.7) Lymphocytes # (Auto) 0.8 x10^3/uL (1.0-4.8) L Monocytes # (Auto) 0.4 x10^3/uL (0.0-1.1) Eosinophils # (Auto) 0.1 x10^3/uL (0.0-0.7) Basophils # (Auto) 0.0 x10^3/uL (0.0-0.2) Laboratory Tests 06/27/19 18:50 EKG EKG [] Radiology/Procedures Radiology/Procedures [] Course & Med Decision Making Course & Med Decision Making Pertinent Labs and Imaging studies reviewed. (See chart for details) [] 34 yo male presents to the emergency department with complaints of rash around port site. Patient has underlying history of prostate cancer, diabetes. He had his port removed on June 21. He noticed itching around the site, he also noticed bumps. He denies any drainage. Patient denies fever, nausea, vomiting, chest pain or SOB. Labs reviewed Bactrim DS provided BID x 5 days Recommend following up with PCP as outpatient Return precautions provided Lolly Disclaimer Dragon Disclaimer This electronic medical record was generated, in whole or in part, using a voice recognition dictation system. Departure Departure Impression: Primary Impression: Rash Disposition: 01 HOME, SELF-CARE Condition: STABLE Referrals: PAUL BARRIOS (PCP) Patient Instructions: Rash Additional Instructions: Recommend follow up with PCP 3 - 5 days Return to the ER with worsening symptoms, intractable pain, fever, altered mental status Tylenol/Motrin as needed for pain Take antibiotics as directed Scripts Sulfamethoxazole/Trimethoprim (BACTRIM DS TABLET) 1 Each Tablet 1 TAB PO BID for infection for 5 Days, #10 TAB Prov: STEVE THORNE MD 06/27/19 STEVE THORNE MD Jun 27, 2019 18:53
[2019-06-27 18:59] LABS: BASO % 1 % (0-3); EOS # 0.1 x10^3/uL (0.0-0.7); EOS % 2 % (0-3); HEMATOCRIT 36.9 % (39.0-53.0); HEMOGLOBIN 12.8 g/dL (13.0-17.5); LYMPH # 0.8 x10^3/uL (1.0-4.8); LYMPH % 14 % (24-48); MEAN CORPUSCULAR HEMOGLOBIN 29 pg (25-35); MEAN CORPUSCULAR HGB CONC 35 g/dL (31-37); MEAN CORPUSCULAR VOLUME 84 fL (79-100); MONO # 0.4 x10^3/uL (0.0-1.1); MONO % 8 % (0-9); NEUT # 4.1 x10^3/uL (1.8-7.7); NEUT % 75 % (31-73); PLATELET COUNT 301 x10^3/uL (140-400); RED BLOOD COUNT 4.41 x10^6/uL (4.30-5.70); RED CELL DISTRIBUTION WIDTH 13.9 % (11.5-14.5); WHITE BLOOD COUNT 5.5 x10^3/uL (4.0-11.0)
[2019-06-27 19:00] VITALS: BP 128/68
== END 2019-06-27 19:15 | disposition home or self-care (01) ==
LOC: ER 18:33
DX: R21 Rash and other nonspecific skin eruption (principal); L29.9 Pruritus, unspecified; E11.9 Type 2 diabetes mellitus without complications
CPT/HCPCS: 36415; 85025; 99283

== ENCOUNTER 2019-07-17 19:55 | Emergency (ER) | payer OTHER ==
[~2019-07-17 19:55] MED LIST changes: +SULF1TAB24 PO
[2019-07-17 20:25] LABS: BASO % 0 % (0-3); EOS # 0.1 x10^3/uL (0.0-0.7); EOS % 2 % (0-3); HEMATOCRIT 36.9 % (39.0-53.0); LYMPH # 0.9 x10^3/uL (1.0-4.8); LYMPH % 14 % (24-48); MEAN CORPUSCULAR HEMOGLOBIN 29 pg (25-35); MEAN CORPUSCULAR HGB CONC 35 g/dL (31-37); MEAN CORPUSCULAR VOLUME 83 fL (79-100); MONO # 0.6 x10^3/uL (0.0-1.1); MONO % 9 % (0-9); NEUT # 4.9 x10^3/uL (1.8-7.7); NEUT % 75 % (31-73); PLATELET COUNT 321 x10^3/uL (140-400); RED BLOOD COUNT 4.44 x10^6/uL (4.30-5.70); RED CELL DISTRIBUTION WIDTH 13.6 % (11.5-14.5); WHITE BLOOD COUNT 6.5 x10^3/uL (4.0-11.0)
[2019-07-17 20:32] LABS: CALCIUM 9.1 mg/dL (8.5-10.1); CREATININE 0.9 mg/dL (0.7-1.3); GFR 115.5; POTASSIUM 3.5 mmol/L (3.5-5.1)
[2019-07-17 20:33] LABS: PROTHROMBIN TIME PATIENT 12.2 SEC (11.7-14.0)
[2019-07-17 20:36] LABS: D-DIMER 0.35 ug/mlFEU (0.00-0.50)
[2019-07-17 20:38] LABS: ALBUMIN 3.6 g/dL (3.4-5.0); MAGNESIUM 1.8 mg/dL (1.8-2.4); TOTAL BILIRUBIN 0.3 mg/dL (0.2-1.0); TOTAL PROTEIN 7.1 g/dL (6.4-8.2)
--- NOTE | 2019-07-17 20:41 | RAD ---
Exam: Chest one view INDICATION: Shortness of breath TECHNIQUE: Frontal view of the chest Comparisons: None FINDINGS: The cardiomediastinal silhouette and pulmonary vessels are within normal limits. The lung and pleural spaces are clear. IMPRESSION: No acute cardiopulmonary process. Electronically signed by: Vero Lorenz MD (07/17/2019 8:38 PM) [id number]
--- NOTE | 2019-07-17 20:54 | PHYS DOC ---
Past Medical History Past Medical History: Cancer, Diabetes-Type II Additional Past Medical Histor: PROSTATE CA, BLOOD CLOTS IN NECK X2 Past Surgical History: Other Additional Past Surgical Histo: PORT PLACEMENT Alcohol Use: Rarely Drug Use: None Adult General Chief Complaint Chief Complaint: RAPID HEART RATE [facility] HPI Patient is a 34 year old with history of prostate cancer, diabetes mellitus, DVT in the cervical area related to Port-A-Cath placement and currently on Love nox injection who presents with complaining of sudden onset of dizziness and shortness of breath and palpitation that happened after marked activity at home and last about an over and is often at arrival to ER. She denies chest pain, fever and chills, cough and congestion, nausea and vomiting. Patient is concern for possible PE or DVT. Review of Systems Review of Systems Constitutional: Denies fever or chills [] Eyes: Denies change in visual acuity, redness, or eye pain [] HENT: Denies nasal congestion or sore throat [] Respiratory: Denies cough, reports shortness of breath [] Cardiovascular: No additional information not addressed in HPI [] GI: Denies abdominal pain, nausea, vomiting, bloody stools or diarrhea [] : Denies dysuria or hematuria [] Musculoskeletal: Denies back pain or joint pain [] Integument: Denies rash or skin lesions [] Neurologic: Denies headache, focal weakness or sensory changes [] Endocrine: Denies polyuria or polydipsia [] All other systems were reviewed and found to be within normal limits, except as documented in this note. Allergies Allergies Allergies Coded Allergies Type Severity Reaction Last Updated Verified No Known Drug Allergies 08/17/16 No Physical Exam Physical Exam Constitutional: Well developed, well nourished, mild distress, non-toxic appearance. [] HENT: Normocephalic, atraumatic. Eyes: PERRLA, EOMI, conjunctiva normal, no discharge. [] Neck: Normal range of motion, no tenderness, supple, no stridor. [] Cardiovascular:Heart rate regular rhythm, no murmur [] Lungs & Thorax: Bilateral breath sounds clear to auscultation [] Abdomen: Bowel sounds normal, soft, no tenderness, no masses, no pulsatile masses. [] Skin: Warm, dry, no erythema, no rash. [] Back: No tenderness, no CVA tenderness. [] Extremities: No tenderness, no cyanosis, no clubbing, ROM intact, no edema. [] Neurologic: Alert and oriented X 3, no focal deficits noted. [] Psychologic: Affect normal, judgement normal, mood normal. [] Current Patient Data Vital Signs Vital Signs Date Time Temp Pulse Resp B/P (MAP) Pulse Ox O2 Delivery O2 Flow Rate FiO2 07/17/19 21:21 86 95 07/17/19 20:14 98.0 16 123/76 (92) Room Air 98.0 Lab Values Laboratory Tests Test 07/17/19 20:09 White Blood Count 6.5 x10^3/uL (4.0-11.0) Red Blood Count 4.44 x10^6/uL (4.30-5.70) Hemoglobin 13.0 g/dL (13.0-17.5) Hematocrit 36.9 % (39.0-53.0) L Mean Corpuscular Volume 83 fL (79-100) Mean Corpuscular Hemoglobin 29 pg (25-35) Mean Corpuscular Hemoglobin Concent 35 g/dL (31-37) Red Cell Distribution Width 13.6 % (11.5-14.5) Platelet Count 321 x10^3/uL (140-400) Neutrophils (%) (Auto) 75 % (31-73) H Lymphocytes (%) (Auto) 14 % (24-48) L Monocytes (%) (Auto) 9 % (0-9) Eosinophils (%) (Auto) 2 % (0-3) Basophils (%) (Auto) 0 % (0-3) Neutrophils # (Auto) 4.9 x10^3/uL (1.8-7.7) Lymphocytes # (Auto) 0.9 x10^3/uL (1.0-4.8) L Monocytes # (Auto) 0.6 x10^3/uL (0.0-1.1) Eosinophils # (Auto) 0.1 x10^3/uL (0.0-0.7) Basophils # (Auto) 0.0 x10^3/uL (0.0-0.2) Prothrombin Time 12.2 SEC (11.7-14.0) Prothrombin Time INR 0.9 (0.8-1.1) Activated Partial Thromboplast Time 30 SEC (24-38) D-Dimer (Dania) 0.35 ug/mlFEU (0.00-0.50) Sodium Level 141 mmol/L (136-145) Potassium Level 3.5 mmol/L (3.5-5.1) Chloride Level 101 mmol/L (98-107) Carbon Dioxide Level 27 mmol/L (21-32) Anion Gap 13 (6-14) Blood Urea Nitrogen 11 mg/dL (8-26) Creatinine 0.9 mg/dL (0.7-1.3) Estimated GFR (Cockcroft-Gault) 115.5 BUN/Creatinine Ratio 12 (6-20) Glucose Level 301 mg/dL (70-99) H Calcium Level 9.1 mg/dL (8.5-10.1) Magnesium Level 1.8 mg/dL (1.8-2.4) Total Bilirubin 0.3 mg/dL (0.2-1.0) Aspartate Amino Transferase (AST) 11 U/L (15-37) L Alanine Aminotransferase (ALT) 23 U/L (16-63) Alkaline Phosphatase 107 U/L (46-116) Creatine Kinase 113 U/L (39-308) Troponin I Quantitative < 0.017 ng/mL (0.000-0.055) [id number]-Type Natriuretic Peptide 11 pg/mL (0-124) Total Protein 7.1 g/dL (6.4-8.2) Albumin 3.6 g/dL (3.4-5.0) Albumin/Globulin Ratio 1.0 (1.0-1.7) Laboratory Tests 07/17/19 20:09 Laboratory Tests 07/17/19 20:09 EKG EKG EKG interpreted by me. EKG at 2007 showed normal sinus rhythm at rate of 94, normal [place] and QT intervals, no acute ST-T wave abnormalities. Radiology/Procedures Radiology/Procedures [facility] [address] [place] [address] IMAGING REPORT Signed PATIENT: ROSALEE JOHNSON EACCOUNT: [id number] : 1985 LOCATION: ER AGE: 34 SEX: M EXAM STATUS: PRE ER ORD. PHYSICIAN: SHANT PORTER MD REASON: shortness of breath and dizziness PROCEDURE: PORTABLE CHEST 1V Exam: Chest one view INDICATION: Shortness of breath TECHNIQUE: Frontal view of the chest Comparisons: None FINDINGS: The cardiomediastinal silhouette and pulmonary vessels are within normal limits. The lung and pleural spaces are clear. IMPRESSION: No acute cardiopulmonary process. Electronically signed by: Vero Banuelos MD (07/17/2019 8:38 PM) [facility] DICTATED and SIGNED BY: VERO BANUELOS MD DATE: 07/17/192037 Course & Med Decision Making Course & Med Decision Making Pertinent Labs and Imaging studies reviewed. (See chart for details) Evaluation of patient in ER showed 34-year-old male patient with history of DVT and Lovenox with complaining of 1 episode of dizziness and palpitation and shortness of breath that resolved at arrival to ER. Patient had unremarkable physical exam, EKG and chest x-ray, labs except for blood sugar of 301. D-dimer was negative. Patient was advised to continue his home medication and follow up with his primary care physician. Dragon Disclaimer Dragon Disclaimer This electronic medical record was generated, in whole or in part, using a voice recognition dictation system. Departure Departure Impression: Primary Impression: Uncontrolled diabetes mellitus Additional Impression: Palpitation Disposition: HOME, SELF-CARE (at 2115) Condition: IMPROVED Referrals: NO PCP (PCP) Patient Instructions: Diet - 2000 Calorie Diabetic, Hyperglycemia, Palpitations Additional Instructions: Drink plenty of liquids Follow-up with your primary care physician in 3-5 days Return to ER if not getting better Continue current medication Thank you for visiting [facility]. We appreciate you trusting us with your care. If any additional problems come up don't hesitate to return to visit us. Please follow up with your primary care provider so they can plan additional care if needed and know about the problem that you had. If symptoms worsen come back to the Emergency Department. Any concerning symptoms that start such as chest pain, shortness of air, weakness or numbness on one side of the body, running high fevers or any other concerning symptoms return to the ER. Problem Qualifiers Primary Impression: Uncontrolled diabetes mellitus Diabetes mellitus type: other specified (including ALBERT) Glycemic state: with hyperglycemia Qualified Codes: E13.65 - Other specified diabetes mellitus with hyperglycemia SHANT PORTER MD Jul 17, 2019 20:54
[2019-07-17 21:21] VITALS: BP 113/70
--- NOTE | 2019-07-18 09:10 | EKG ---
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
== END 2019-07-17 21:31 | disposition home or self-care (01) ==
LOC: ER 19:55
DX: E11.65 Type 2 diabetes mellitus with hyperglycemia (principal); R00.2 Palpitations; R06.02 Shortness of breath; Z86.718 Personal history of other venous thrombosis and embolism; Z79.01 Long term (current) use of anticoagulants
CPT/HCPCS: 36415; 71045; 80053; 82550; 83735; 83880; 84484; 85025; 85379; 85610; 85730; 93005; 99285-25